=== PATIENT | female | born 1950 | race Caucasian/White ===

== ENCOUNTER 2018-10-13 08:48 | Emergency (ER) | payer MEDICAID ==
[~2018-10-13] VITALS: Wt 100.0 kg
[~2018-10-13 08:48] MED LIST: HYDR-4011 PO; MELO7.5T38 PO
[2018-10-13 08:52] VITALS: BP 151/60; PULSE 68; RESP 18
[2018-10-13] MEDS ORDERED: KETOROLAC 60 MG INJ IM STA (09:29)
[2018-10-13] MEDS ORDERED: HYDROCODONE/APAP (10/325) TAB PO ONE (09:30)
--- NOTE | 2018-10-13 10:16 | ERD ---
ER Documentation Chief Complaint Chief Complaint MARIAELENA LEG PAIN X 1 YEAR, WORSEN X 1 MOS, JOINT PAINS HPI 67-year-old female planing of bilateral knee pain for the past year. States it is gotten worse over the last month. States that her doctors give her ibuprofen but it has not seemed to give her enough relief. Patient states that he did x- rays but did not show anything. Patient is ambulatory. Denies chest pain, SOB, hemoptysis, leg swelling, leg erythema, history of trauma, numbness, weakness, flank pain, dsyuria, hematuria, saddle numbness, incontinence, pain worse at night or when supine, weight loss, night sweats, fatigue, focal neurological defecits, recent bacterial infection, IV drug use, or immunosuppression. States she is prediabetic. States her kidney function is good. Denies allergies. Denies surgeries. Denies ETOH, drug, or tobacco use. ROS All systems reviewed and are negative except as per history of present illness. Medications Home Meds Active Scripts Hydrocodone/Acetaminophen (D[place] 5-325 Tablet) 1 Each Tablet, 1 TAB PO Q6H PRN for PAIN, #7 TAB Prov:FAHEEM PALACIOS 10/13/18 Meloxicam* (Meloxicam*) 7.5 Mg Tablet, 7.5-15 MG PO DAILY, #30 TAB Prov:FAHEEM PALACIOS 10/13/18 Reported Medications [None] No Conflict Check 04/14/10 Allergies Allergies: Coded Allergies: No Known Drug Allergy (Verified Allergy, Unknown, 04/14/10) PMhx/Soc History of Surgery: Yes (LUMPECTOMY LEFT BREAST 2010) Anesthesia Reaction: No Hx Neurological Disorder: No Hx Respiratory Disorders: No Hx Cardiac Disorders: No Hx Psychiatric Problems: No Hx Alcohol Use: Yes (occasional) Hx Substance Use: No Hx Tobacco Use: No Smoking Status: Never smoker FmHx Family History: No diabetes, No coronary disease, No other Physical Exam Vitals Vital Signs Date Temp Pulse Resp B/P (MAP) Pulse Ox O2 O2 Flow FiO2 Time Delivery Rate 10/13/18 98.1 68 18 151/60 99 08:52 (90) Physical Exam Const: No acute distress Head: Atraumatic Eyes: Normal Conjunctiva ENT: Normal External Ears, Nose and Mouth. Neck: Full range of motion. No meningismus. Resp: Clear to auscultation bilaterally Cardio: Regular rate and rhythm, no murmurs Abd: Soft, non tender, non distended. Normal bowel sounds Skin: No petechiae or rashes Back: No midline or flank tenderness Ext: No cyanosis, or edema. distal pulses sensation intact.. 5 out of 5 strength in lower extremities bilaterally. No saddle numbness. Neur: Awake and alert Psych: Normal Mood and Affect Lower Extremity - bilateral: Skin: No laceration Compartments: Soft Motor: Full active range of motion hip/knee/ankle/foot Sensation: Intact to light touch FDWS/MF/LF/P surfaces. Bones: Nontender pelvis/knee/proximal tibia/ malleoli/foot Joints: No effusion or laxity Pulses/Perfusion: 2+ DP, Capillary refill < 2 seconds Results 24 hrs Current Medications Medications Dose Sig/Jak Start Time Status Last (Trade) Ordered Route PRN Stop Time Admin Dose Reason Admin Ketorolac 60 mg ONCE STAT 10/13/18 DC 10/13/18 Tromethamine IM 09:29 10/13/18 09:39 (Toradol) 09:31 1 tab ONCE ONCE 10/13/18 DC 10/13/18 Acetaminophen PO 09:30 10/13/18 09:39 / 09:31 Hydrocodone Bitart ([place] (10/325)) Procedures/MDM MDM: Patient's presentation consistent with chronic osteoarthritis. Patient was advised needs to be managed on outpatient basis. Patient was advised that she might need knee injections possibly from surgery given the fact that the ibuprofen does not seem to be helping. This time I have low suspicion for cauda equina, compartment syndrome, DVT, septic arthritis, compartment syndrome, fracture, or any emergent condition. Patient given Toradol and [place] in the ER and discharged with Rx for meloxicam and short course of [place] for breakthrough pain and only be taken at night. At this time, patient is stable for discharge and outpatient management. I have instructed the patient to follow-up with his/her primary care physician in 1 day. I have discussed with the patient the possibility of needing to see a specialist for further workup and imaging studies if symptoms persist. I have instructed the patient to promptly return to the ER for any new or worsening symptoms including but not limited to increased pain, fever, nausea, vomiting, weakness or LOC. The patient and/or family expressed understanding of and agreement with this plan. All questions were answered. Home care instructions were provided. Communication with patient throughout the ER course was performed using a trans lator . Patient gave verbal confirmation to the practitioner, through the resident medical officer, that they understood everything that was being said to them. DISCLAIMER: Inadvertent spelling and grammatical errors are likely due to EHR/dictation software use and do not reflect on the overall quality of patient care. Also, please note that the electronic time recorded on this note does not necessarily reflect the actual time of the patient encounter. Departure Diagnosis: Primary Impression: Osteoarthritis Condition: Stable Patient Instructions: What Is Osteoarthritis?, Osteoarthritis: Non-invasive Treatment Options, Osteoarthritis: Common Sites, Osteoarthritis: Coping with Pain, Osteoarthritis: Exercise, Osteoarthritis: Managing Pain, Osteoarthritis: Tips for Daily Living, Osteoarthritis: Injections or Surgery Referrals: [facility] YOU HAVE RECEIVED A MEDICAL SCREENING EXAM AND THE RESULTS INDICATE THAT YOU DO NOT HAVE A CONDITION THAT REQUIRES URGENT TREATMENT IN THE EMERGENCY DEPARTMENT. FURTHER EVALUATION AND TREATMENT OF YOUR CONDITION CAN WAIT UNTIL YOU ARE SEEN IN YOUR DOCTORS OFFICE WITHIN THE NEXT 1-2 DAYS. IT IS YOUR RESPONSIBILITY TO MAKE AN APPOINTMENT FOR FOLOW-UP CARE. IF YOU HAVE A PRIMARY DOCTOR --you should call your primary doctor and schedule an appointment IF YOU DO NOT HAVE A PRIMARY DOCTOR YOU CAN CALL OUR PHYSICIAN REFERRAL HOTLINE AT IF YOU CAN NOT AFFORD TO SEE A PHYSICIAN YOU CAN CHOSE FROM THE FOLLOWING [facility] [address] [facility]. [facility] [address] [facility] [facility] [address] [facility] [address] [facility] [address] [facility]. [facility]. [address] Additional Instructions: FOLLOW UP WITH YOUR PRIMARY CARE PHYSICIAN TOMORROW.Return to this facility if you are not improving as expected. Only take the [place] at night if there is breakthrough pain. Do not take it if driving or using any heavy machinery. FAHEEM PALACIOS Oct 13, 2018 10:16
== END 2018-10-13 09:47 | disposition home or self-care (01) ==
LOC: FTE 08:48
DX: M17.0 Bilateral primary osteoarthritis of knee (principal)
CPT/HCPCS: J1885; Z7610; 96372